=== PATIENT | female | born 1970 | race Caucasian/White ===

== ENCOUNTER → 2024-01-31 | Outpatient (CLI) | payer BC | END | disposition home or self-care (01) | LOC: RAH 07:38 | PROVIDERS: ATTEND Nurse Practitioner Family | DX: G51.9 Disorder of facial nerve, unspecified (principal); G24.5 Blepharospasm | CPT/HCPCS: 72141 ==

== ENCOUNTER → 2024-10-12 | Outpatient (CLI) | payer BC ==
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
== END | disposition home or self-care (01) ==
LOC: RAH 13:10
PROVIDERS: ATTEND Nurse Practitioner Family
DX: S83.411A Sprain of medial collateral ligament of right knee, initial encounter (principal); S80.01XA Contusion of right knee, initial encounter; M25.461 Effusion, right knee; M25.561 Pain in right knee; V00.328A Other snow-ski accident, initial encounter; Y93.23 Activity, snow (alpine) (downhill) skiing, snowboarding, sledding, tobogganing and snow tubing; Y92.89 Other specified places as the place of occurrence of the external cause; Y99.8 Other external cause status
CPT/HCPCS: 73721